=== PATIENT | male | born 1950 | race Caucasian/White ===

== ENCOUNTER → 2020-10-21 09:35 | Outpatient (REF) | payer MEDICARE, SELFPAY ==
--- NOTE | 2020-10-21 10:30 | CA_ITS ---
Transthoracic Echocardiogram Patient (Last, First, Middle): Rajendra Barcenas, Gender: Male Date of : 1950 Age: 70 Procedure Date: 10/21/2020 Procedure Type: Transthoracic Echocardiogram Location: OP Height: 175.26 cm Weight: 95.26 kg BSA: 2.11 m2 Heart Rate: bpm BP: 138 / 80 mmHg Responder: DAYAMI Zuñiga MD: Vasquez Mujica MD Bilingual Inside Sales Representative: Fuad Castro MD Symptoms: I42.8 NICM I50.22 CHF Study Quality: Fair ECG Rhythm: Sinus Conclusions: - 1. [id number] LV systolic dysfunction with pseudonormal filling pattern 2. Mildly dilated left atrium 3. Mild aortic stenosis 4. Mild mitral regurgitation 5. Normal RV systolic pressure 6. No pericardial effusion Findings Left Ventricle Normal left ventricular cavity size. There is normal left ventricular wall thickness. The left ventricular systolic function is mild to moderately decreased. The visually estimated ejection fraction is between 40-45%. Spectral Doppler is indicative of a pseudonormal filling pattern. E/E prime ratio is between 8 and 15 consistent with indeterminate filling pressures. Right Ventricle Normal right ventricular cavity size and systolic function. Atria The left atrium is mildly dilated. There is lipomatous hypertrophy of the interatrial septum. There is no evidence of interatrial shunt. The right atrium is normal in size. Aortic Valve There is mild calcification of the aortic valve. There is moderate thickening of the aortic valve. There is mild aortic valve stenosis. There is no aortic valve regurgitation. Mitral Valve There is mild anterior and posterior mitral leaflet thickening. There is moderate mitral annular calcification. There is mild mitral valve regurgitation. There is no mitral valve stenosis. Pulmonic Valve The pulmonic valve was not well visualized. Tricuspid Valve Likely normal tricuspid valve structure and function. There is mild tricuspid valve regurgitation. The right ventricular systolic pressure is normal. The right ventricular systolic pressure is 27 mmHg. Normal right atrial pressure. There is no evidence of pulmonary hypertension. Great Vessels All visible segments of the aorta are normal in size. The pulmonary artery was not well visualized. Venous The inferior vena cava is normal in size and collapses greater than 50% with inspiration. Pericardium/Pleural There is no evidence of pericardial effusion. Prior Study Comparison Changes noted compared to prior study dated: 11/05/2019. compared to prior study LV systolic function is marginally improved Measurements 2D Linear Measurements IVSd: 1.15 0.6-0.9/0.6-1.0 cm LVIDd: 6.02 3.9-5.3/4.2-5.9 cm LVIDd Index: 2.85 2.4-3.2/2.2-3.1 cm/m2 LVIDs: 4.44 2.0-3.6 cm LVPWd: 1.13 0.7-1.1 cm Ao Root: 3.10 2.1-3.5 cm LA Diam: 4.30 2.7-3.8/3.0-4.0 cm LAIDs Index: 2.04 1.5-2.3 cm/m2 LV Mass: 367.76 67-162/88-224 g LV Mass Index: 174.30 43-95/49-115 g/m2 LVOT Diam: 2.10 3.0+(-)1.3 cm 2D Systolic Function EF 4C: 48.50 >55% EF 2C: 40.50 >55% EF BiP: 42.00 >55% Mitral Valve MV Pk E: 1.19 MV PK A: 0.82 MV Decel Time: 242.00 E/A: 1.50 E'Lateral: 7.62 E'Medial: 4.13 E/E' Med: 28.80 E/E' Lat: 15.60 PHT: 71.00 MVA PHT: 3.10 Decel [place]: 4.91 Aortic Valve AoV Pk Michel: 1.75 AoV Mn Michel: 1.30 AoV VTI: 0.41 AoV Pk Grad: 12.00 Aov Mn Grad: 7.00 DEMI Cont.VTI: 1.75 LVOT LVOT Pk Michel: 0.87 LVOT Mn Michel: 0.61 LVOT VTI: 0.21 LVOT Pk Grad: 3.00 LVOT Mn Grad: 2.00 LVOT Diam: 2.10 LVOT Area: 3.46 Diastolic Function MV Pk E: 1.19 MV Pk A: 0.82 E/A: 1.50 E'Medial: 4.13 E/E' Med: 28.80 E' Laterial: 7.62 E/E' Lat: 15.60 Tricuspid Valve TR Pk Michel: 2.47 TR Pk Grad: 24.00 RA Press: 3.00 RVSP: 27.00 Great Vessels Aorta Ao Root-2D: 3.10 2.0-3.7 cm Ao Asc: 3.70 2.1-3.4 cm Ao Arch: 3.00 Updated in Other Vendor System with Status of Final Fuad Castro MD electronically signed on 10/23/2020 1:02:07 PM with status of Final
== END ==
LOC: HO.CARD 09:35
PROVIDERS: Visit Provider Internal Medicine
DX: I42.8 Other cardiomyopathies (principal); I50.22 Chronic systolic (congestive) heart failure
CPT/HCPCS: 93306

== ENCOUNTER 2021-03-03 06:57 | Outpatient (REF) | payer MEDICARE, SELFPAY ==
[2021-03-03 07:29] LABS: MANUAL DIFF FLAG NO
[2021-03-03 07:35] LABS: Basophils Absolute Auto 0.1 X10*3/uL (0.0-0.2); Basophils Percent Auto 0.7 % (0-2); Eosinophils Absolute Auto 0.4 X10*3/uL (0.0-0.4); Eosinophils Percent Auto 4.6 % (0-4); Hemoglobin 10.9 g/dl (14.0-18.0); Imm Gran Abs Auto 0.05 X10*3/uL (0.00-0.03); Imm Gran Pct Auto 0.6 % (0.0-0.4); Immature Retic Fraction 3.9 % (2.3-13.4); Lymphocytes Absolute Auto 1.5 X10*3/uL (1.2-4.9); Lymphocytes Percent Auto 17.4 % (20-40); Mean Corpuscular HGB Conc 32.1 g/dl (31.0-36.0); Mean Corpuscular Hemoglobin 31.1 pg (27.0-33.0); Mean Corpuscular Volume 96.9 fL (80-98); Monocytes Absolute Auto 0.8 X10*3/uL (0.1-1.2); Monocytes Percent Auto 9.2 % (2-11); Neutrophils Absolute Auto 5.9 X10*3/uL (2.0-8.3); Neutrophils Percent Auto 67.5 % (45-73); Platelet Count 254 X10*3/uL (160-400); Red Blood Count 3.51 X10*6/uL (4.60-5.80); Red Cell Distribution Width 13.9 % (11.0-16.0); Retic HGB Equivalent 34.2 pg (30.0-35.0); Reticulocyte Percent 1.1 % (0.5-1.8); White Blood Count 8.7 X10*3/uL (4.8-10.8)
[2021-03-03 08:21] LABS: Estimated Average Glucose 240 mg/dL
[2021-03-03 08:40] LABS: Folate 7.9 ng/mL (> or = 4.0); Vitamin B12 346 pg/mL (200-900)
[2021-03-03 08:41] LABS: Alanine Aminotransferase 9 U/L (0-40); Albumin Level 3.8 g/dL (3.5-5.0); Alkaline Phosphatase 123 U/L (39-117); Anion Gap 19 (12-20); Aspartate Amino Transferase 15 U/L (5-37); Bilirubin Total 0.4 mg/dL (0.0-1.0); Blood Urea Nitrogen 39 mg/dL (9-16); Calcium 8.7 mg/dL (8.4-10.2); Carbon Dioxide 26 mmol/L (22-29); Chloride 95 mmol/L (96-108); Cholesterol 164 mg/dL; Estimated Glomerular Filt Rate 8; Glucose Random 291 mg/dL (60-115); HDL Cholesterol 30 mg/dL; Iron 120 mcg/dL (45-160); LDL Cholesterol Calculated 66 mg/dl; Percent Iron Saturation 52 % (15-50); Potassium 4.1 mmol/L (3.3-5.1); Sodium 136 mmol/L (135-145); Total Iron Binding Capacity 231 mcg/dL (228-428); Total Protein 7.7 g/dL (6.5-8.0); Triglycerides 344 mg/dL; Unsaturated Iron Binding 111 ug/dL
[2021-03-03 08:51] LABS: B Type Natriuretic Peptide 462 pg/mL (<100)
[2021-03-03 09:42] LABS: Free T4 (Free Thyroxine) 1.04 ng/dL (0.71-1.85); Thyroid Stimulating Hormone 1.25 uIU/mL (0.32-4.0)
[2021-03-03 09:52] LABS: Creatinine Urine 116.43 mg/dL
[2021-03-03 09:52] LABS: Ferritin 2318 ng/mL (20-250)
== END 2021-03-03 06:58 | disposition home or self-care (01) ==
LOC: HO.LAB 06:57
PROVIDERS: PCP Internal Medicine; Visit Provider Internal Medicine
DX: E11.65 Type 2 diabetes mellitus with hyperglycemia (principal); E11.22 Type 2 diabetes mellitus with diabetic chronic kidney disease; E78.00 Pure hypercholesterolemia, unspecified; I50.9 Heart failure, unspecified; N18.6 End stage renal disease; Z79.4 Long term (current) use of insulin
CPT/HCPCS: 36415; 80053; 80061; 82043; 82607; 82728; 82746; 83036; 83540; 83880; 84439; 84443; 85025; 85045

== ENCOUNTER 2021-05-10 09:44 | Outpatient (REF) | payer MEDICARE, SELFPAY ==
[2021-05-10 10:59] LABS: MANUAL DIFF FLAG NO
[2021-05-10 11:37] LABS: Basophils Absolute Auto 0.1 X10*3/uL (0.0-0.2); Basophils Percent Auto 0.8 % (0-2); Eosinophils Absolute Auto 0.5 X10*3/uL (0.0-0.4); Eosinophils Percent Auto 5.7 % (0-4); Hematocrit 29.8 % (42-52); Hemoglobin 9.5 g/dl (14.0-18.0); Imm Gran Abs Auto 0.06 X10*3/uL (0.00-0.03); Imm Gran Pct Auto 0.7 % (0.0-0.4); Lymphocytes Absolute Auto 1.3 X10*3/uL (1.2-4.9); Mean Corpuscular HGB Conc 31.9 g/dl (31.0-36.0); Mean Platelet Volume 10.6 fL (9.4-12.4); Monocytes Absolute Auto 0.7 X10*3/uL (0.1-1.2); Monocytes Percent Auto 8.7 % (2-11); Neutrophils Absolute Auto 5.9 X10*3/uL (2.0-8.3); Neutrophils Percent Auto 69.1 % (45-73); Platelet Count 226 X10*3/uL (160-400); Red Blood Count 3.17 X10*6/uL (4.60-5.80); Red Cell Distribution Width 13.5 % (11.0-16.0); Retic HGB Equivalent 32.7 pg (30.0-35.0); Reticulocyte Percent 1.3 % (0.5-1.8); Reticulocytes Absolute 0.041 X10*6/uL (0.026-0.095); White Blood Count 8.6 X10*3/uL (4.8-10.8)
[2021-05-10 11:46] LABS: B Type Natriuretic Peptide 1434 pg/mL (<100)
[2021-05-10 11:47] LABS: Alanine Aminotransferase 7 U/L (0-40); Albumin Level 3.9 g/dL (3.5-5.0); Alkaline Phosphatase 125 U/L (39-117); Anion Gap 19 (12-20); Aspartate Amino Transferase 14 U/L (5-37); Bilirubin Total 0.6 mg/dL (0.0-1.0); Blood Urea Nitrogen 50 mg/dL (9-16); Calcium 8.2 mg/dL (8.4-10.2); Carbon Dioxide 25 mmol/L (22-29); Chloride 97 mmol/L (96-108); Cholesterol 163 mg/dL; Estimated Glomerular Filt Rate 7; Glucose Random 302 mg/dL (60-115); HDL Cholesterol 31 mg/dL; Iron 107 mcg/dL (45-160); LDL Cholesterol Calculated 82 mg/dl; Percent Iron Saturation 48 % (15-50); Sodium 137 mmol/L (135-145); Total Iron Binding Capacity 223 mcg/dL (228-428); Total Protein 7.4 g/dL (6.5-8.0); Triglycerides 250 mg/dL; Unsaturated Iron Binding 116 ug/dL
[2021-05-10 11:56] LABS: Estimated Average Glucose 289 mg/dL; Hemoglobin A1c % 11.7 %
[2021-05-10 12:09] LABS: Free T4 (Free Thyroxine) 0.88 ng/dL (0.71-1.85); Thyroid Stimulating Hormone 2.09 uIU/mL (0.32-4.0); Vitamin D 25-OH Total 21.7 ng/mL (>30)
[2021-05-10 12:13] LABS: Folate 7.6 ng/mL (> or = 4.0); Vitamin B12 375 pg/mL (200-900)
[2021-05-10 12:48] LABS: Ferritin 1711 ng/mL (20-250)
== END 2021-05-10 09:45 | disposition home or self-care (01) ==
LOC: HO.LAB 09:44
PROVIDERS: PCP Internal Medicine; Visit Provider Internal Medicine
DX: E11.65 Type 2 diabetes mellitus with hyperglycemia (principal); E11.22 Type 2 diabetes mellitus with diabetic chronic kidney disease; E66.9 Obesity, unspecified; E78.00 Pure hypercholesterolemia, unspecified; I50.9 Heart failure, unspecified; N18.6 End stage renal disease; Z79.4 Long term (current) use of insulin
CPT/HCPCS: 36415; 80053; 80061; 82306; 82607; 82728; 82746; 83036; 83540; 83880; 84439; 84443; 85025; 85045; 99202

== ENCOUNTER 2022-01-07 07:13 | Outpatient (REF) | payer OTHER, SELFPAY ==
--- NOTE | ~2022-01-07 | XR_ITS ---
EXAMINATION: XR CHEST CLINICAL INFORMATION: Cough COMPARISON: Previous chest x-ray most recent February 2019 TECHNIQUE: 2 views of the chest were obtained. FINDINGS: The cardiac silhouette is upper normal in size but stable. The thoracic aorta may be slightly ectatic but appears stable. There are increased central vascular markings questionable for pulmonary venous redistribution. No evidence of pulmonary edema is seen. There is right apical pleural thickening that is stable. There is blunting at the bilateral posterior costophrenic angles questionable for small bilateral pleural effusions. Bony structures are unremarkable. XR/XR chest 2V IMPRESSION: Question mild CHF with pulmonary venous redistribution and small bilateral pleural effusions.
== END 2022-01-07 07:14 | disposition home or self-care (01) ==
LOC: HO.XRAY 07:13
PROVIDERS: PCP Internal Medicine; Visit Provider Internal Medicine
DX: R05.9 Cough, unspecified (principal)
CPT/HCPCS: 71046

== ENCOUNTER 2022-05-11 11:41 | Outpatient (REF) | payer OTHER, SELFPAY ==
[2022-05-11 12:13] LABS: MANUAL DIFF FLAG NO
[2022-05-11 12:34] LABS: Basophils Absolute Auto 0.1 X10*3/uL (0.0-0.2); Basophils Percent Auto 0.5 % (0-2); Eosinophils Absolute Auto 0.5 X10*3/uL (0.0-0.4); Eosinophils Percent Auto 3.1 % (0-4); Hematocrit 27.9 % (42.0-52.0); Hemoglobin 8.6 g/dl (14.0-18.0); Imm Gran Abs Auto 0.31 X10*3/uL (0.00-0.03); Imm Gran Pct Auto 2.1 % (0.0-0.4); Lymphocytes Absolute Auto 0.9 X10*3/uL (1.2-4.9); Lymphocytes Percent Auto 6.3 % (20-40); Mean Corpuscular HGB Conc 30.8 g/dl (31.0-36.0); Mean Corpuscular Hemoglobin 29.3 pg (27.0-33.0); Mean Corpuscular Volume 94.9 fL (80.0-98.0); Mean Platelet Volume 10.4 fL (9.4-12.4); Monocytes Absolute Auto 1.1 X10*3/uL (0.1-1.2); Monocytes Percent Auto 7.5 % (2-11); Neutrophils Percent Auto 80.5 % (45-73); Platelet Count 461 X10*3/uL (160-400); Red Blood Count 2.94 X10*6/uL (4.60-5.80); Red Cell Distribution Width 15.9 % (11.0-16.0); White Blood Count 14.9 X10*3/uL (4.8-10.8)
[2022-05-11 13:22] LABS: Alanine Aminotransferase 87 U/L (0-40); Albumin Level 3.3 g/dL (3.5-5.0); Alkaline Phosphatase 964 U/L (39-117); Anion Gap 19 (12-20); Aspartate Amino Transferase 61 U/L (5-37); Bilirubin Total 1.3 mg/dL (0.0-1.0); Blood Urea Nitrogen 46 mg/dL (9-16); Calcium 8.9 mg/dL (8.4-10.2); Carbon Dioxide 29 mmol/L (22-29); Chloride 88 mmol/L (96-108); Glucose Random 201 mg/dL (60-115); Potassium 5.3 mmol/L (3.3-5.1); Sodium 131 mmol/L (135-145); Total Protein 8.1 g/dL (6.5-8.0)
[2022-05-11 13:24] LABS: Estimated Glomerular Filt Rate 10
== END 2022-05-11 11:42 | disposition home or self-care (01) ==
LOC: HO.LAB 11:41
PROVIDERS: Nurse Practitioner Family; PCP Internal Medicine; Visit Provider Internal Medicine
DX: L02.415 Cutaneous abscess of right lower limb (principal); L03.115 Cellulitis of right lower limb
CPT/HCPCS: 36415; 80053; 85025

== ENCOUNTER 2022-07-04 09:27 | Outpatient (REF) | payer OTHER, SELFPAY ==
--- NOTE | 2022-07-04 17:28 | PFT_ITS ---
Forced vital capacity 53%, FEV1 32%, FEV1/FVC ratio is 48. [id number]%, only 10% and MVV 35%. Post bronchodilator therapy, there is a minimal improvement in FVC and FEV1 as well as in UWA80-45%. Total lung capacity 89%. Residual volume 127%. Diffusion capacity 68%. CONCLUSION: Severe obstructive airway disorder with evidence of air trapping. There is a minimal response to bronchodilator therapy. Clinical correlation is recommended. Esau Coulter MD MSB/MODL / [id number]
== END 2022-07-04 09:28 | disposition home or self-care (01) ==
LOC: HO.RESP 09:27
PROVIDERS: PCP Internal Medicine; Visit Provider Internal Medicine
DX: R06.02 Shortness of breath (principal)
CPT/HCPCS: 94060; 94727; 94729